=== PATIENT | male | born 1990 | race Caucasian/White ===

== ENCOUNTER 2016-07-10 21:17 | Emergency (ER) | payer OTHER ==
[~2016-07-10] VITALS: Ht 167.6 cm; Wt 72.0 kg
[2016-07-10 21:51] VITALS: BP 148/85
--- NOTE | 2016-07-10 22:06 | NUR ---
meds given and scanner wrapping was thrown in trash before scanning.
--- NOTE | 2016-07-10 22:10 | NUR ---
REASMT PAIN ON ULTRAM NOT DONE BEFORE MIN. TIME PT LEFT AT 2210 SAID PAIN WAS A 1.
== END 2016-07-10 22:10 | disposition home or self-care (01) ==
LOC: ED 21:18
DX: S83.92XA Sprain of unspecified site of left knee, initial encounter (principal); X50.9XXA Other and unspecified overexertion or strenuous movements or postures, initial encounter; Y99.0 Civilian activity done for income or pay
CPT/HCPCS: 73562; 99282; 99283

== ENCOUNTER 2016-08-05 14:33 | Emergency (ER) | payer OTHER ==
[~2016-08-05] VITALS: Ht 167.6 cm; Wt 79.0 kg
[~2016-08-05 14:33] MED LIST: CLIN-78 PO; CLIN-79 PO
[2016-08-05] MEDS ORDERED: HYDROmorphone 1 MG/ML (DILAUDID) SYRINGE IM ONE (15:00)
[2016-08-05] MEDS ORDERED: METOCLOPRAMIDE 10 MG/2 ML (REGLAN) VIAL IM ONE (15:00)
[2016-08-05] MEDS ORDERED: diphenhydrAMINE 50 MG/ML INJ (BENADRYL) IM ONE (15:00)
[2016-08-05] MEDS ORDERED: LRT10T PO (15:01)
[2016-08-05] MEDS ORDERED: METO-311 PO (15:01)
[2016-08-05 15:12] VITALS: BP 126/76
== END 2016-08-05 15:13 | disposition home or self-care (01) ==
LOC: ED 14:33
DX: G43.909 Migraine, unspecified, not intractable, without status migrainosus (principal)
CPT/HCPCS: 96372; 99282; J1170; J1200; J2765; 99283